=== PATIENT | male | born 1970 | race Caucasian/White ===

== ENCOUNTER → 2017-08-09 | Outpatient (CLI) | payer BC ==
--- NOTE | 2017-08-09 09:23 | Diagnostic Imaging Report ---
PROCEDURE:X-RAY RIGHT KNEE, THREE OR MORE VIEWS COMPARISON:None. INDICATIONS:RIGHT KNEE PAIN FINDINGS: The bones are well-mineralized. There are no fractures, subluxations, lytic or blastic lesions. There is no evidence of a joint effusion. CONCLUSION: No acute radiographic abnormality. Dictated by: Mann Adams M.D. on 08/09/2017 at 9:24 Electronically approved by: Mann Adams M.D. on 08/09/2017 at 9:24
== END ==
LOC: RAD 07:59
PROVIDERS: ATTEND Internal Medicine
DX: M25.561 Pain in right knee (principal)